=== PATIENT | male | born 1945 | race Hispanic/Latino ===

== ENCOUNTER 2019-01-18 07:43 | Day surgery (SDC) | payer MEDICARE, BC, SELFPAY ==
[2019-01-13 12:36] VITALS: BMI 27.6
--- NOTE | 2019-01-18 | PATH_ITS ---
[facility] Accession Number: [id number] . 01 Material submitted: . PART A: body - NERVE PART B: body - CORD LIPOMA PART C: hernia - HERNIA SAC FROM RIGHT INGUINAL HERNIA PART D: hernia - UMBILICAL HERNIA SAC AND CONTENTS . 02 Diagnosis: A. Nerve, Not Otherwise Specified: Portions of peripheral nerve tissue with no significant histomorphologic abnormality. . B. Cord Lipoma: Histologic features of benign lipoma (3.0 cm in greatest dimension). . C. Hernia Sac From Right Inguinal Hernia, Repair: Benign fibroconnective tissue fragments, morphologically consistent with hernia sac with no significant histomorphologic abnormality. . D. Umbilical Hernia Sac and Contents, Hernia Repair: Benign fibroconnective tissue, consistent with hernia sac contents with no significant histomorphologic abnormality. [facility]/01/20/2019 . 02 Electronically signed: . Mel Ames MD, Pathologist NPI- [id number] . 01 Gross description: . (A) Received in formalin, labeled nerve, is a jose-yellow segment of nerve (length-3.8 cm, diameter-0.2 cm). Submitted intact in cassette A1. The segment will be serially sectioned at embedding. (B) Received in formalin, labeled cord lipoma, is a piece of bright yellow rubbery adipose tissue (3.0 x 1.3 x 0.5 cm) with a homogeneous unremarkable cut surface. Wet Machine Operator serial sections submitted in cassette B1. (C) Received in formalin, labeled hernia sac from R inguinal hernia, are multiple fragments of todd-jose membranous tissue (2.5 x 1.4 x 0.2 cm in aggregate). Wet Machine Operator serial sections submitted in cassette C1. (D) Received in formalin, labeled umbilical cord hernia sac with contents, is a piece of jose-yellow rubbery adipose tissue (3.5 x 2.3 x 2.0 cm) with a homogeneous unremarkable cut surface. Wet Machine Operator serial sections submitted in cassette D1. ([id number]) /MRV . 02 Pathologist provided ICD-10: K40.00 . 02 CPT . 365029, 246015, 134042, 015947 Performed at: 01 [facility] [address] [facility], [place], [place] [id number] MD David Alcala MD Phone: [phone] Performed at: [address] [facility] [address] [place], [place] [id number] MD Jessica Jeronimo MD Phone: [phone]
[2019-01-18 08:00] VITALS: BP 139/82; PULSE 79; RESP 16; TEMP 36.8; O2SAT 98; BMI 27.6
--- NOTE | 2019-01-18 08:37 | PM.PREOP ---
Pre-operative Note Interval Note History & Physical reviewed/Exam performed by Physician: Yes Changes to H&P: No
[2019-01-18] MEDS: LACTATED RINGERS 1,000 ML 42 ML IV ×2 (08:45→11:30)
[2019-01-18] MEDS: CEFAZOLIN 2 GM/100 ML FROZ.PIGGY IV (09:16)
--- NOTE | 2019-01-18 09:39 | SUR.OPER ---
Supine on padded OR bed, head on pillow, arms secured on padded arm boards at <90 degrees abduction, legs uncrossed, safety belt at thigh, tape over blanket over lower legs.
[2019-01-18] MEDS: BUPIVACAINE 0.25% W/ EPI (PF) 10 ML VIAL 30 ML INJ (10:19)
[2019-01-18 11:46] VITALS: BP 115/73; PULSE 78; RESP 16; TEMP 36.6; O2SAT 97
[2019-01-18 11:51] VITALS: BP 117/73; PULSE 76; RESP 18; O2SAT 95
[2019-01-18] MEDS: fentaNYL 100 MCG/2 ML INJ 50 MCG IV (11:55)
[2019-01-18 11:56] VITALS: BP 120/75; PULSE 77; RESP 20; O2SAT 97
--- NOTE | 2019-01-18 12:00 | SUR.PHASEI ---
care/report from ricky. pt c/o pain and having lots of gas
--- NOTE | 2019-01-18 12:02 | SUR.PHASEI ---
medicated with fentanyl for pain.
[2019-01-18 12:11] VITALS: BP 129/86; PULSE 83; RESP 20; O2SAT 93
[2019-01-18] MEDS: OXYCODONE/ACETAMINOPHEN 5/325 TABLET 1 TAB PO (12:19)
--- NOTE | 2019-01-18 12:29 | SUR.PHASEI ---
Stable pacu stay, gas still present, but less pt belchiong no nausea, pt tolerated applesauce and medicated with one percocet.
[2019-01-18 12:30] VITALS: BP 128/71; PULSE 43; RESP 16; TEMP 37.1; O2SAT 95
--- NOTE | 2019-01-18 13:29 | SUR.PHASEII ---
1240 late entry Tolerated PO well; pain controlled at 10. States that he feels ready to go home. Instructions reviewed w/patient and spouse; discussed bowel management. No questions/concern.
--- NOTE | 2019-01-18 13:59 | P.OP_ITS ---
Operative Date/Time/Diagnoses Date of procedure: 01/18/19 Time of procedure: 11:54 Pre-op diagnosis: 1. Right Inguinal Hernia 2. Umbilical Hernia Post-op diagnosis: same Procedure & Clinicians Procedure: 1. Right Inguinal Hernia Repair with mesh 2. Umbilical Hernia Repair Same procedure as scheduled: Yes Indications: 73yo M with chronic but increasingly symptomatic hernias. Wishes to proceed with repair after discussion of all risks, benefits, and alternatives. Surgeon: Elisha Tabler Click Yes if Unassisted: Yes Anesthesia Type: General Operative Notes Findings: 1. large direct right inguinal hernia; small cord lipoma 2. 1.5cm umbilical defect containing fat Closure Type: primary Specimen(s): other (1. nerve 2. cord lipoma 3. right inguinal hernia sac 4. umbilical hernia sac and contents) Estimated Blood Loss (mL): 10 Procedure in detail: Patient was taken to the operating room and placed on the operating table in supine position. The right groin was prepped and draped in the usual sterile fashion and a timeout performed with the team present. The pubic symphysis and anterior superior iliac spine were then marked. Local anesthesia was used to infiltrate the line of planned incision as well as the area of the ilioinguinal nerve. A 15 blade scalpel was used to make an 8 cm long incision along the length of the inguinal ligament. Electrocautery was used to go down to the level of the external oblique. A 15 blade scalpel used to make a small incision in the aponeurosis and then Metzenbaum scissors used to open up the external oblique aponeurosis widely. The ilioinguinal nerve was identified and carefully excised so it was entirely removed from the field. The posterior aspect of the external oblique aponeurosis was cleaned superiorly and inferiorly. The shelving edge of the inguinal ligament was identified. The spermatic cord and its surrounding tissues were identified and encircled with a jim drain. Attachments to cremaster were muscle were taken down using electrocautery and blunt dissection. A large direct defect containing fat was identified. The hernia sac was dissected away and removed using a 2-0 silk suture. A small cord lipoma was also identified and ligated along the spermatic cord. The cord itself had a large fatty component but no hernia was present. The area was irrigated and dried. Using an Atrium mesh cut to size the floor of the inguinal canal was recreated. The mesh was sewn into place with 0-Ethibond in an interrupted fashion starting at the pubic tubercle. The internal ring was then recreated by sewing the flaps of the keyhole mesh together. A finger was noted to easily pass through the ring along with the spermatic cord contents. The was irrigated again. Hemostasis was obtained using electrocautery. The mesh was noted to lie without redundancy or tension in satisfactory position.The external oblique aponeurosis was then reapproximated using 3-0 vicryl in a running fashion. This also recreated the external ring. The scrotum was palpated and the testicle and spermatic cord were pulled back into their usual anatomic position. Sánchez's fascia was reapproximated using 2-0 vicryl in a running fashion. Dermis was closed using 3-0 vicryl and epidermis reapproximated using 4-0 monocryl in a running subcuticular fashion. The remainder of the local anesthesia was used over the incision site and at the level of the ilioinguinal nerve. The area was cleaned and dried. Attention was then turned to the umbilical hernia. Local anesthesia was infiltrated around the umbilicus. Using a 15 blade scalpel, an approximately 4 cm incision was made just below the umbilicus. This was taken down through the subcutaneous tissue using electrocautery until the fascia and base of the umbilicus were encountered. The hernia sac was identified. It was opened and the peritoneal cavity was identified as well. The hernia was opened widely and then transected along its attachments to the fascia. The fascial defect measured approximately 1.5cm. The posterior aspect of the fascia was cleaned circumferentially. And all omental adhesions were taken down. The anterior aspect of the fascia was then cleared for exposure. As the fascial defect was less than 2cm, it was closed primarily using 0- ethibond sutures in an interrupted fashion. Subcutaneous tissues were irrigated and dried. Hemostasis was obtained using electrocautery. The umbilical stalk was tacked down to the level of the fascia using a 3-0 Vicryl suture. The deep subcutaneous tissues were closed using 3-0 Vicryl in an interrupted fashion. The skin was then closed using 4-0 monocryl in a running fashion. The abdomen was cleaned and dried. Skin glue and a pressure dressing were placed over the incision. Skin glue was also applied to the inguinal incision. The patient was awakened and taken to the postanesthesia care unit in stable condition. All counts were correct at the end of the procedure. Complications: none Condition: stable Disposition: PACU
== END 2019-01-18 12:48 | disposition home or self-care (01) ==
PROVIDERS: PCP Family Medicine; Visit Provider Surgery
PROC: (CPT 49505; principal; 2019-01-18 09:15)
PROC: (CPT 49505; 2019-01-18 09:15)
DX: K40.90 Unilateral inguinal hernia, without obstruction or gangrene, not specified as recurrent (principal); I10 Essential (primary) hypertension; E03.9 Hypothyroidism, unspecified; K42.9 Umbilical hernia without obstruction or gangrene
CPT/HCPCS: 49505; 49585; 88304; C1781; J0690; J1100; J2405; J2704; J3010

== ENCOUNTER 2019-05-31 06:52 | Day surgery (SDC) | payer MEDICARE, BC, SELFPAY ==
[2019-05-27 10:25] VITALS: BMI 27.6
--- NOTE | 2019-05-31 | PATH_ITS ---
[facility] Accession Number: [id number] . 01 Material submitted: . hemorrhoids - HEMORRHOIDS . 01 Clinical history: . EXCISIONAL HEMORRHOIDECTOMY UNSPECIFIED HEMORRHOIDS . 01 Diagnosis: Hemorrhage, Hemorrhoidectomy: Anal squamocolumnar junctional mucosa with dilated veins and congestion within the submucosa, consistent with hemorrhoid tissue. Negative for dysplasia and malignancy. [facility] 06/02/2019 1539 Local . 01 Electronically signed: . Neal Aggarwal MD, Pathologist NPI- [id number] . 01 Gross description: . HEMORRHOIDS: Received in formalin are 2 fragments of jose soft tissue measuring 2.0 x 1.5 x 1.0 cm. Tissue is inked blue. Specimen is sectioned and submitted in sales representative metals sections in 1 cassette. [place] [place]/02/[place] 1101 Local . 01 Pathologist provided ICD-10: K64.9 . 01 CPT . 763659 Performed at: [address], [place], [place] [id number] MD David Alcala MD Phone: [phone]
[2019-05-31 07:24] VITALS: BP 126/72; PULSE 76; RESP 18; TEMP 36.6; O2SAT 99; BMI 27.6
[2019-05-31] MEDS: LACTATED RINGERS 1,000 ML 100 ML IV (07:31)
[2019-05-31 07:32] VITALS: BMI 27.6
--- NOTE | 2019-05-31 07:36 | PM.PREOP ---
Pre-operative Note Interval Note History & Physical reviewed/Exam performed by Physician: Yes Changes to H&P: No
--- NOTE | 2019-05-31 08:18 | SUR.OPER ---
Lithotomy on padded OR bed, head on pillow, arms secured on padded arm boards at <90 degrees abduction. Legs secured in padded yellow fins stirrups.
[2019-05-31] MEDS: BUPIVACAINE 0.25% (PF) VIAL 30 ML INJ (08:24)
[2019-05-31] MEDS: DIBUCAINE 1% OINT 28 GM 1 APPLIC TOP (08:25)
[2019-05-31 08:44] VITALS: BP 113/67; PULSE 70; RESP 16; TEMP 36.6; O2SAT 96
[2019-05-31 08:49] VITALS: BP 114/72; PULSE 72; RESP 18; O2SAT 95
--- NOTE | 2019-05-31 08:50 | PM.OP.1 ---
Operative Date/Time/Diagnoses Date of procedure: 05/31/19 Time of procedure: 08:50 Pre-op diagnosis: hemorrhoids Post-op diagnosis: same Procedure & Clinicians Procedure: Excisional hemorrhoidectomy x2 Same procedure as scheduled: Yes Indications: For patient is a 73-year-old male with prolapsing and bleeding hemorrhoids. Following discussion of the risks benefits alternatives surgical intervention he elected to proceed with an excisional hemorrhoidectomy. Surgeon: Nathan Davidson Click Yes if Unassisted: Yes Anesthesia Type: General Operative Notes Findings: Right anterior and right posterior hemorrhoids with internal and external component. Specimen(s): other (Hemorrhoid x2) Estimated Blood Loss (mL): 5 Procedure in detail: The patient was brought to the operating room placed supine on the table. Bilateral lower extremity compression devices were applied. General anesthesia was induced and they were intubated with an LMA. They were then placed into lithotomy position. They were then prepped and draped in usual sterile fashion. Time-out was performed ensure the correct patient procedure necessary equipment within the operating room. Rectal block was performed by injecting 20 mL of 0.25% bupivacaine into the intersphincteric groove. A internal examination of the anal canal was made. The right anterior and right posterior hemorrhoidal pedicles freely prolapsed. They were grasped elevated and excised with electorcautery off the internal spincter. The mucosal defect was then closed with a running 3-0 Vicyrl suture. Hemostasis was checked. The specimens were passed off the field. Wound was irrigated with saline. Gelfoam was then placed into the anal anal. Sponge and instrument counts were correct at the end of the procedure. They emerged from anesthesia were extubated and transferred to the postoperative care unit in stable condition Complications: none Post-operative Condition: stable Disposition: same day surgery
[2019-05-31 08:54] VITALS: BP 118/74; PULSE 70; RESP 16; TEMP 36.2; O2SAT 96
[2019-05-31 08:58] VITALS: BP 118/74; PULSE 66; RESP 17; TEMP 36.3; O2SAT 97
[2019-05-31 09:25] VITALS: BP 109/60; PULSE 62; RESP 16; TEMP 36.3; O2SAT 94
== END 2019-05-31 09:27 | disposition home or self-care (01) ==
PROVIDERS: PCP Family Medicine; Visit Provider Surgery
PROC: (CPT 46260; principal; 2019-05-31 07:45)
DX: K64.1 Second degree hemorrhoids (principal); K64.4 Residual hemorrhoidal skin tags
CPT/HCPCS: 46260; J2405; J2704; J3010

== ENCOUNTER → 2023-12-30 14:29 | Outpatient (CLI) | payer MEDICARE, BC, SELFPAY ==
--- NOTE | 2024-01-06 08:59 | DIET.OUTPTC ---
Addendum entered by Elena Ruth 01/14/24 16:41: Assessment: 78 y M referred for CKD 3 and pre-diabetes and borderline hyperlipidemia. Interventions: 1. Provided MNT for CKD3 and pre-diabetes and heart health using Mediterranean diet -Including educ on macro and micronutrients, balanced plate, label reading 2. Discussed adequate intake for meeting needs and cooking Original Note: Dietary Outpatient Consultation Note Consultation Date: 12/30/2023 Assessment: 78 y M referred for CKD 3. Corey reports his last A1c was higher than normal and has concerns of developing diabetes and preventing decline of kidneys. A1c 5.5% on last visit. He would like to learn how to apply the Mediterranean diet. Corey has been semi-vegetarian or avoid red meats for 20 years. 6 months ago his past away, goes to therapy/class for grief. He recently began applying the MeD diet to his eating. Noted non-severe weight loss, he is adjusting to preparing meals. Diet recall: provided journal of last 3-4 days, summarized below B-smoothie with canadian yogurt and spinach and fruit OR vietnamese toast with egg OR oatmeal with nuts and fruit; typically 2 servings of fruit; has OJ L-fruit and handful of nuts D-turkey sandwich, broccoli, fruit OR fish and veg and rice Will sometimes have ice cream or a cookie after dinner Doesn't add salt to meals he prepares at home. Gets some of his foods from helping hands, some items (i.e. breaded fish) will come with no nutrition facts label. Activity: 3 mile walk 3x/wk Raul Chi class 1 hr 15 min 1x/wk No food allergies GI symptoms: denies N/V/C/D Ht: - Wt: 75.8 kg BMI: 26.35 UBW: 77.1-77.6 kg (170-171#) Weight history: 11/26/23: 75.8 kg (167 lb); (-2.3% weight loss in 5 months, non-severe, -1.8% weight loss in 2 months, non-severe) 10/02/23: 77.1 kg (170 lb) 07/08/23: 77.6 kg (171 lb) Labs: A1C: 5.5% on 10/16/23 Potassium WNL on 11/24/23 eGFR: 56 on 11/24/23 Lipid panel WNL except LDL: 116 on 11/24/23 Nutrition Diagnosis: Nutrition related knowledge deficit r/t to no previous nutrition educ as evidenced by pt questions during assessment Interventions: 1. Provided MNT for CKD3 and prevention of diabetes using Mediterranean diet -Including educ on macro and micronutrients, balanced plate, label reading 2. Discussed adequate intake for meeting needs and cooking Goals: 1. MeD style eating pattern: 5 fruits and vegs/day, serving of legumes, fish 2x/wk, whole grain breads, healthy oils/fats 2. Increase intake between breakfast and dinner with extra snack or added component to lunch, especially on days of exercise EER: 55-65 g protein (0.8 g/kg per CKD 3) Monitoring/Evaluations: weight, A1c, eGFR, K+, adequate intake, diet recall Electronically Signed by: Elena Ruth 01/06/24 08:59 Clinical Dietitian [address] [address]
== END ==
PROVIDERS: Family Provider Family Medicine; PCP Family Medicine; Referring Provider Family Medicine
DX: N18.30 Chronic kidney disease, stage 3 unspecified (principal); Z68.26 Body mass index [BMI] 26.0-26.9, adult; Z71.3 Dietary counseling and surveillance; R73.03 Prediabetes; E78.5 Hyperlipidemia, unspecified
CPT/HCPCS: 97802

== ENCOUNTER → 2024-01-26 12:40 | Outpatient (CLI) | payer MEDICARE, BC, SELFPAY ==
--- NOTE | 2024-02-01 15:07 | DIET.OUTPTC ---
Dietary Outpatient Consultation Note Consultation Date: 01/26/2024 Assessment: Nutrition f/u for 78 y M referred to dietitian for CKD 3, prediabetes, and borderline hyperlipidemia. Corey's concerns today focused on portion sizes and added sugars. Reviewed dietary intake, weight, and goals. He reports an overall decrease in size of dinners, he has adjusted to having only 1 portion of dinner and feels satisfied after. Concern present for continued weight loss. Corey says today his weight was 159 lb at home. Provided printed out doctors visit from 01/01/24 where weight was 169.5 lb. -6% weight loss within 1 month. Visual NFPE performed, no signs of muscle or subcutaneous fat loss. Diet recall compared with EER. Weights may vary due to clothing, shoes, items in pocket etc. Discussed healthy weight ranges for age. Corey has been semi-vegetarian or avoid red meats for 20 years. ~6-7 months ago his past away, goes to therapy/class for grief - he has been connecting and meeting up with friends from this class more. He continues applying the MeD diet to his eating. Diet recall: B- Option 1: smoothie with 1-1.5 c fruit, 1/4-1/2 c vegetables (spinach/carrots), [address] [place]ian yogurt, 1 heaping scoop protein powder, 1 protein supplement drink , and 1 package breakfast essentials x2/week OR hong konger toast with egg and fruit (1-1.5 cups)(3 slices of bread) x1/week OR oatmeal with nuts and fruit (1-1.5 cups) L-fruit (dried i.e. 3-4 prunes or apple) and handful of nuts D-example: 2 CHO servings pasta with turkey meatballs, 1-2 cups salad filled with vegetables and 1/2-1 cup cooked vegetables in pasta Has 1 ounce cheese after dinner Doesn't add salt to meals he prepares at home. Gets some of his foods from helping hands, some items (i.e. breaded fish) will come with no nutrition facts label. Activity: 3 mile walk 3x/wk Raul Chi class 1 hr 15 min 1x/wk No food allergies Ht: 5 ft 6.75 inches (169.55 cm) Wt: 72.27 kg (159 lb) per pt report of weight on 01/26/24 BMI: 25.1 UBW: 77.1-77.6 kg (170-171#) Weight history: 01/26/24: pt reported weight at home: 72.27 kg (159 lb) 01/01/24 77.05 kg (169.5 lb) 11/26/23: 75.8 kg (167 lb); (-2.3% weight loss in 5 months, non-severe, -1.8% weight loss in 2 months, non-severe) 10/02/23: 77.1 kg (170 lb) 07/08/23: 77.6 kg (171 lb) Labs: A1C: 5.5% on 10/16/23; A1c: 5.7% on Apr 2023 Potassium WNL on 11/24/23 eGFR: 56 on 11/24/23 Lipid panel WNL except LDL: 116 on 11/24/23 Nutrition Diagnosis: Nutrition related knowledge deficit r/t to no previous nutrition educ as evidenced by pt questions during assessment Interventions: 1. Reviewed MNT for CKD3, prevention of diabetes, and borderline hyperlipidemia using Mediterranean diet -Including review on macro and micronutrients, balanced plate, label reading 2. Discussed adequate intake for meeting needs, encouraged 1-2x/month weighing self, weight maintenance/avoiding going below 150 lb (to remain in healthy BMI for age) 3. Discussed sources of added sugars in current diet recall Goals: 1. Continue MeD style eating pattern: 2-3 fruits and 4+ vegs/day, serving of legumes, fish 2x/wk, whole grain breads, healthy oils/fats 2. Removing breakfast essentials packet from smoothie in morning, checking label for added sugars in dried fruit (removing extra added sugars) 3. If weight continues to drop, add in additional lunch snack (i.e. leftovers) and/or additional carb/protein at dinner Monitoring/Evaluations: weight, A1c, eGFR, K+, adequate intake, diet recall Is planning on attending MeD class offered here end of January, will f/u ~3 months after Electronically Signed by: Elena Ruth 02/01/24 15:07 Clinical Dietitian [address] [address]
== END ==
PROVIDERS: Family Provider Family Medicine; PCP Family Medicine; Referring Provider Family Medicine
DX: R73.03 Prediabetes (principal); N18.30 Chronic kidney disease, stage 3 unspecified; E78.5 Hyperlipidemia, unspecified; Z68.25 Body mass index [BMI] 25.0-25.9, adult; Z71.3 Dietary counseling and surveillance
CPT/HCPCS: 97803

== ENCOUNTER → 2024-09-01 12:23 | Outpatient (CLI) | payer MEDICARE, BC, SELFPAY ==
--- NOTE | 2024-09-01 12:25 | DI.RAD.S_ITS ---
PROCEDURE: XR KNEE RT 3V INDICATIONS: KNEE PAIN TECHNIQUE: 3 views of the knee were acquired. COMPARISON: None. FINDINGS: No acute fracture or dislocation. Diffuse osseous demineralization. Minimal tricompartmental osteoarthritis, most conspicuous in the medial compartment. No significant joint effusion. IMPRESSION: Minimal tricompartmental osteoarthritis. Dictated by: Thanh Doll M.D. on 09/02/2024 at 11:31 Approved by: hTanh Doll M.D. on 09/02/2024 at 11:32
== END ==
PROVIDERS: Family Provider Family Medicine; PCP Family Medicine; Referring Provider Family Medicine; Visit Provider Family Medicine
DX: M25.561 Pain in right knee (principal); G89.29 Other chronic pain
CPT/HCPCS: 73562

== ENCOUNTER → 2025-06-23 10:22 | Outpatient (CLI) | payer OTHER, SELFPAY ==
--- NOTE | 2025-06-23 10:25 | DI.RAD.S_ITS ---
PROCEDURE: XR LUMBAR SPINE 2-3V INDICATIONS: Unspecified inflammatory spondylopathy, lumbar region TECHNIQUE: 3 views of the lumbar spine were acquired. COMPARISON: [facility], CR, XR LUMBAR SPINE WITH OBLIQUES PLUS FLEXION EXTENSION, 06/08/2024, 11:21. FINDINGS: Bones: 5 [id number] vertebrae are present. Mild levocurvature of the lumbar spine centered at L3. There is trace retrolisthesis of L5 on S1, unchanged. Similar multilevel degenerative disc disease, severe at L3-L4 and L5-S1. Similar moderate multilevel facet arthropathy in the lower thoracic and lumbar spine. At least mild bony neural foraminal narrowing is seen at L3-L4 and L5-S1, similar to prior. No vertebral body compression fractures. No suspicious bony lesions. Soft tissues: Overlying bowel gas pattern is normal. No suspicious soft tissue calcifications. IMPRESSION: Similar multilevel degenerative changes of the spine with moderate multilevel facet arthropathy and degenerative disc disease most prominent at L3-L4 and L5-S1, with at least mild bony neural foraminal stenosis at L3-L4 and L5-S1. Dictated by: Alex Gomez M.D. on 06/25/2025 at 23:10 Approved by: Alex Gomez M.D. on 06/25/2025 at 23:14
== END ==
LOC: RAD 10:24
PROVIDERS: Family Provider Family Medicine; PCP Family Medicine; Referring Provider Chiropractor; Visit Provider Chiropractor
DX: M46.96 Unspecified inflammatory spondylopathy, lumbar region (principal); M47.816 Spondylosis without myelopathy or radiculopathy, lumbar region; M47.817 Spondylosis without myelopathy or radiculopathy, lumbosacral region; M51.369 Other intervertebral disc degeneration, lumbar region without mention of lumbar back pain or lower extremity pain; M51.379 Other intervertebral disc degeneration, lumbosacral region without mention of lumbar back pain or lower extremity pain; M48.061 Spinal stenosis, lumbar region without neurogenic claudication; M48.07 Spinal stenosis, lumbosacral region
CPT/HCPCS: 72100